=== PATIENT | male | born 1990 | race Two or more races ===

== ENCOUNTER 2020-02-29 06:36 | Outpatient (REF) | payer BC, SELFPAY | END 2020-02-29 06:37 | disposition home or self-care (01) | LOC: HO.LAB 06:36 | PROVIDERS: PCP Nurse Practitioner Adult Health; Visit Provider Internal Medicine | DX: Z20.828 Contact with and (suspected) exposure to other viral communicable diseases (principal) | CPT/HCPCS: C9803; U0003 ==